=== PATIENT | female | born 1970 | race Caucasian/White ===

== ENCOUNTER 2017-12-05 11:14 | Emergency (ER) | payer OTHER ==
[~2017-12-05] VITALS: Ht 165.1 cm; Wt 61.2 kg
[~2017-12-05 11:14] MED LIST: ESCITALOPRAM OXA5 MG PO; GLIMEPIRIDE4 M1 PO; LATUDA80 M1 PO; LISINOPRIL10 M1 PO; PIOGLITAZONE HC30 M1 PO; RANITIDINE HCL300 M1 PO; VITAMIN D250000 UNIT PO
[2017-12-05 12:13] LABS: ABSOLUTE BASOPHIL COUNT 0.1 /CUMM (0.0-0.2); ABSOLUTE EOSINOPHIL COUNT 0.2 /CUMM (0.0-0.7); ABSOLUTE GRANULOCYTE CT 10.6 /CUMM (1.4-6.5); ABSOLUTE LYMPH COUNT 4.3 /CUMM (1.2-3.4); ABSOLUTE MONOCYTE COUNT 1.1 /CUMM (0.10-0.60); BASOPHIL % 0.7 % (0.0-2.0); EOSINOPHIL % 1.3 % (0-5); GRANULOCYTE % 65.2 % (42.2-75.2); HEMATOCRIT 46.8 % (37-47); MEAN CORPUSCULAR HGB 30.1 PG (27.0-31.0); MEAN CORPUSCULAR VOLUME 88.6 FL (81.0-99.0); MEAN PLATELET VOLUME 7.4 FL (7.4-10.4); PLATELET COUNT 423 /CUMM (130-400); RBC DISTRIBUTION WIDTH 12.8 % (11.5-14.5); RED BLOOD CELL CT 5.28 /CUMM (4.20-5.40); WHITE BLOOD CELL COUNT 16.3 /CUMM (4.8-10.8)
--- NOTE | 2017-12-05 15:16 | RADIOLOGY REPORT ---
EXAMINATION: XR CHEST CLINICAL INFORMATION: Cough, fever and shortness of breath. COMPARISON: 03/01/2017 TECHNIQUE: 2 views of the chest were obtained. FINDINGS: Lungs are well expanded and clear. No pulmonary consolidation or pleural effusion. Cardiac silhouette is normal in size and hilar contours are normal. The visualized bones are intact. Anterior fusion plates and screws are seen within the cervical spine. IMPRESSION: No evidence of pneumonia. No acute cardiopulmonary findings compared to 03/01/2017.
--- NOTE | 2017-12-05 15:17 | RADIOLOGY REPORT ---
EXAMINATION: XR ANKLE, RIGHT CLINICAL INFORMATION: Pain COMPARISON: None TECHNIQUE: AP, lateral, and mortise views of the right ankle. FINDINGS: There is no fracture or dislocation. The ankle mortise is congruent. No ankle joint effusion. Small plantar heel spur present. The soft tissues are unremarkable. IMPRESSION: No acute osseous abnormality. Plantar heel spur.
--- NOTE | 2017-12-05 16:03 | ED GENERAL ADULT ---
History of Present Illness General Chief Complaint: Dyspnea (COPD, CHF, Other) Stated Complaint: DIFF BREATHING Source: patient Exam Limitations: no limitations Vital Signs & Intake/Output Vital Signs & Intake/Output Vital Signs Date Time Temp Pulse Resp B/P B/P Pulse O2 O2 Flow FiO2 Mean Ox Delivery Rate 12/05 1816 98.1 101 22 117/74 93 Room Air 12/05 1653 97.7 87 18 141/87 94 Room Air Room Air 12/05 1225 94 Nasal 2.0L Cannula 12/05 1205 89 Room Air 12/05 1122 98.3 86 18 103/70 96 Room Air Room Air Allergies Coded Allergies: Penicillins (HANDS SWELL 12/15/16) Triage Note: PT TO ED WITH C/O SOB COUGH CONGESTION +SMOKER, HX ASTHMA, BROCITIS ?COPD. PT EVAL IN TRIAGE BY KERA SCHUSTER. Triage Nurses Notes Reviewed? yes Onset: Gradual Duration: day(s): Timing: constant HPI: 47-year-old female with a history of Crohn's, diabetes presenting with cough productive of white sputum, chest tightness, and shortness of breath over the past few days. Endorses coughing fits that result in posttussive emesis. No recent sick contacts. Patient has no formal diagnosis of COPD, but is a one pack per day smoker. Reports that she gets bronchitis multiple times per year, requiring a course of antibiotics in order to improve. Denies fevers, URI symptoms, chest pain, abdominal pain, diarrhea. Patient also complains of urinary frequency, but denies dysuria or hematuria. (Arianna SCHUSTER,Terrie) Reconcile Medications Albuterol Sulfate (Proventil Hfa) 90 MCG HFA.AER.AD 2 PUF INH Q4 PRN SOB Atorvastatin Calcium 10 MG TABLET 1 TAB PO DAILY CHOLESTEROL (Reported) Azithromycin 250 MG TABLET 1 DP PO AD bronchitis 2 the first day followed by 1 for days 2-5 Cephalexin (Keflex) 500 MG CAPSULE 1 CAP PO BID UTI Ergocalciferol (Vitamin D2) (Vitamin D2) 50,000 UNIT CAPSULE 1 CAP PO QW VITAMIN SUPPORT (Reported) Gabapentin 100 MG CAPSULE 2 CAP PO TID UNKNOWN (Reported) Glimepiride 4 MG TABLET 1 TAB PO DAILY DIABETES (Reported) Ipratropium/Albuterol Sulfate (Combivent Respimat Inhal [place]) 20 MCG-100 MCG/ ACTUATION MIST.INHAL 2 Actuation INH Q6P PRN BRONCHITIS/WHEEZING Lisinopril 10 MG TABLET 1 TAB PO DAILY HEART (Reported) Lurasidone HCl (Latuda) 80 MG TABLET 1 TAB PO QPM MENTAL HEALTH (Reported) Pioglitazone HCl 30 MG TABLET 1 TAB PO DAILY DIABETES (Reported) Prednisone 10 MG TABLET 6 TAB PO DAILY COPD Sitagliptin Phosphate (Januvia) 100 MG TABLET 1 TAB PO DAILY DIABETES ( Reported) (Prasad HENRY,Raymond) Past History Travel History Traveled to [place] past 21 day No Medical History Any Pertinent Medical History? 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 No (Terrie Monaco) Review of Systems Review of Systems Constitutional: Reports: no symptoms. EENTM: Reports: no symptoms. Respiratory: Reports: see HPI. Cardiovascular: Reports: no symptoms. GI: Reports: see HPI. Genitourinary: Reports: see HPI. Musculoskeletal: Reports: no symptoms. Skin: Reports: no symptoms. Neurological/Psychological: Reports: no symptoms. Hematologic/Endocrine: Reports: no symptoms. Immunologic/Allergic: Reports: no symptoms. (Terrie Monaco) Physical Exam Physical Exam General Appearance: well developed/nourished, no apparent distress, alert, awake , comfortable Head: atraumatic, normal appearance Eyes: Bilateral: normal appearance. Ears, Nose, Throat: normal ENT inspection Neck: normal inspection Respiratory: wheezing, diffuse end expiratory wheezing throughout all lung vasquez Cardiovascular: regular rate/rhythm Gastrointestinal: soft, non-tender Back: normal inspection, no CVA tenderness Extremities: normal inspection Neurologic/Psych: awake, alert, oriented x 3, normal gait, normal mood/affect Skin: intact, normal color, warm/dry Core Measures ACS in differential dx? No CVA/TIA Diagnosis: No Sepsis Present: No Sepsis Focused Exam Completed? No (Terrie Monaco) Progress Differential Diagnoses I considered the following diagnoses in my evaluation of the patient: [ Bronchitis versus pneumonia versus COPD with exacerbation versus UTI versus pyelonephritis, low concern for PE versus ACS] Plan of Care: Orders Procedure Date/time Status ARTERIAL BLOOD GAS (GEN) 12/05 1822 Active Add-on Test (ER Only) 12/05 1611 Active CULTURE,URINE 12/05 1515 Active AEROSOL (GEN) 12/05 1254 Complete URINALYSIS 12/05 112 Complete TROPONIN LEVEL 12/05 112 Complete COMPREHENSIVE METABOLIC PANEL 12/05 112 Complete CBC WITHOUT DIFFERENTIAL 12/05 112 Complete EKG 12/05 112 Active Current Medications Sig/Rossana Start time Last Medication Dose Stop Time Status Admin Ciprofloxacin 500 MG ONCE ONE 12/05 164 CAN (Cipro) 12/05 164 Laboratory Tests 12/05/17 1835: pH 7.42, pCO2 36, pO2 62 L, HCO3 23, ABG O2 Sat (Measured) 90.0 L, Carboxyhemoglobin 1.6, O2 Concentration % RA, Temperature 98.6, Phlebotomy Draw Site RIGHT RADIAL 12/05/17 1515: Urine Color YEL, Urine Clarity HAZY H, Urine pH 6.0, Ur Specific [place] >= 1.030, Urine Protein 30 H, Urine Ketones 40 H, Urine Nitrite NEG, Urine Bilirubin NEG@ICTO, Urine Urobilinogen 0.2, Ur Leukocyte Esterase SMALL H, Ur Microscopic SEDIMENT EXAMINED, Urine RBC RARE, Urine WBC 15-25 H, Urine Bacteria PACKD H, Urine Hemoglobin TRACE-INTACT, Urine Glucose >=1000 H 12/05/17 1155: Anion Gap 13, Estimated GFR > 60, BUN/Creatinine Ratio 24.0, Glucose 241 H, Calcium 9.9, Total Bilirubin 0.5, AST 15, ALT 23, Alkaline Phosphatase 139 H, Troponin I < 0.01, Total Protein 7.1, Albumin 4.1, Globulin 3.0, Albumin/ Globulin Ratio 1.4, CBC w Diff MAN DIFF ORDERED, RBC 5.28, MCV 88.6, MCH 30.1, MCHC 34.0, RDW 12.8, MPV 7.4, Gran % 65.2, Lymphocytes % 26.1, Monocytes % 6.7, Eosinophils % 1.3, Basophils % 0.7, Absolute Granulocytes 10.6 H, Segmented Neutrophils 69, Absolute Lymphocytes 4.3 H, Lymphocytes 27, Monocytes 3, Absolute Monocytes 1.1 H, Eosinophils 1, Absolute Eosinophils 0.2, Absolute Basophils 0.1, Platelet Estimate VERIFIED BY SMEAR, Normocytic RBCs VERIFIED, Normochromic RBCs VERIFIED Microbiology 12/05 1515 URINE ROUT: Urine Culture - RECD UA is concerning for infection, urine culture sent, and will cover with Keflex. Low concern for pyelonephritis as patient has no CVA tenderness and has been afebrile. Labs are remarkable for leukocytosis to 16. Chest x-ray was unremarkable. Suspect patient has underlying COPD, with likely acute exacerbation secondary to bronchitis. Will cover with Rx azithromycin and prednisone. Given refill on her albuterol inhaler. On discharge patient was noted to be somewhat lethargic, obtain ABG to ensure that the patient didn't have hypercarbic respiratory failure. ABG is within normal limits, no acidosis or hypercarbia. Patient is now well-appearing, satting mid 90s on room air, no tachypnea, no signs of respiratory distress. Ambulatory O2 sat remained in the mid 90s. Patient is cleared for discharge, counseled on supportive care, and given strict return precautions. Initial ED EKG: NSR, no ST T wave changes (Terrie Monaco) Departure Departure Disposition: HOME OR SELF CARE Condition: Stable Clinical Impression Primary Impression: Bronchitis Secondary Impressions: UTI (urinary tract infection) Referrals: Rohan HENRY,Baudilio Aguilar (PCP/Family) Additional Instructions: Take azithromycin, Keflex, and prednisone as prescribed. Use your albuterol inhaler as needed for shortness of breath. Follow-up with your primary care provider for reevaluation. Return to the emergency department for any new or worsening symptoms. Departure Forms: Customer Survey General Discharge Information Prescriptions: Current Visit Scripts Albuterol Sulfate (Proventil Hfa) 2 PUF INH Q4 PRN SOB #1 INHAL Prednisone 6 TAB PO DAILY #18 TAB Azithromycin 1 DP PO AD #6 TAB 2 the first day followed by 1 for days 2-5 Cephalexin (Keflex) 1 CAP PO BID #20 CAP (Terrie Monaco) PA/DRYWALL APPLICATION SUPERVISOR Co-Sign Statement Statement: ED Attending supervision documentation- I saw and evaluated the patient. I have also reviewed all the pertinent lab results and diagnostic results. I agree with the findings and the plan of care as documented in the PA's/DRYWALL APPLICATION SUPERVISOR's documentation. x I have reviewed the ED Record and agree with the PA's/DRYWALL APPLICATION SUPERVISOR's documentation. [] Additions or exceptions (if any) to the PAs/DRYWALL APPLICATION SUPERVISOR's note and plan are summarized below: [] (Prasad HENRY,Raymond) Critical Care Note Critical Care Note Critical Care Time: 30-74 min (Arianna SCHUSTER,Terrie)
[2017-12-05] MEDS ORDERED: KEFLEX500 M1 PO (16:46)
[2017-12-05] MEDS ORDERED: PREDNISONE10 M2 PO (16:46)
[2017-12-05] MEDS ORDERED: AZITHROMYCIN250 M1 PO (16:46)
[2017-12-05] MEDS ORDERED: PROVENTIL HFA6.7 GM INH (16:46)
[2017-12-05 18:16] VITALS: BP 117/74
[2017-12-07] MEDS ORDERED: GABAPENTIN100 M2 PO (08:59)
[2017-12-07] MEDS ORDERED: ATORVASTATIN CA10 M1 PO (09:00)
[2017-12-07] MEDS ORDERED: JANUVIA100 M1 PO (09:00)
[2017-12-07] MEDS ORDERED: COMBIVENT RESPIM4 GM INH (13:14)
== END 2017-12-05 19:34 ==
LOC: ERH 11:14
PROVIDERS: Physician Assistant Medical
DX: J40 Bronchitis, not specified as acute or chronic (principal); N39.0 Urinary tract infection, site not specified; F17.210 Nicotine dependence, cigarettes, uncomplicated; R07.89 Other chest pain; R06.02 Shortness of breath; E11.9 Type 2 diabetes mellitus without complications; Z79.84 Long term (current) use of oral hypoglycemic drugs
CPT/HCPCS: 1263; 71046; 73610-RT; 81001; 87086; 93005; 93010; 96374; 96375; J0456; J1885; J2405; J2930

== ENCOUNTER 2018-01-15 13:10 | Emergency (ER) | payer OTHER ==
[~2018-01-15] VITALS: Ht 162.6 cm; Wt 62.1 kg
[~2018-01-15 13:10] MED LIST changes: +ATORVASTATIN CA10 M1 PO; +AZITHROMYCIN250 M1 PO; +COMBIVENT RESPIM4 GM INH; +GABAPENTIN100 M2 PO; +JANUVIA100 M1 PO; +KEFLEX500 M1 PO; +PREDNISONE10 M2 PO; +PROVENTIL HFA6.7 GM INH
--- NOTE | 2018-01-15 14:27 | ED HEAD/FACIAL INJ COMPLAINT ---
History of Present Illness General Chief Complaint: Facial or Head Injury Stated Complaint: HIT HEAD FEW HRS AGO, -LOC, WOOZY,NAUSEA Source: patient Exam Limitations: no limitations Vital Signs & Intake/Output Vital Signs & Intake/Output Vital Signs Date Time Temp Pulse Resp B/P B/P Pulse O2 O2 Flow FiO2 Mean Ox Delivery Rate 01/15 1757 Room Air 01/15 1656 98.0 01/15 1421 98.0 91 18 98 Room Air Allergies Coded Allergies: Penicillins (HANDS SWELL 12/15/16) Reconcile Medications Albuterol Sulfate (Proventil Hfa) 90 MCG HFA.AER.AD 2 PUF INH Q4 PRN SOB Atorvastatin Calcium 10 MG TABLET 1 TAB PO DAILY CHOLESTEROL (Reported) Azithromycin 250 MG TABLET 1 DP PO AD bronchitis 2 the first day followed by 1 for days 2-5 Cephalexin (Keflex) 500 MG CAPSULE 1 CAP PO BID UTI Ergocalciferol (Vitamin D2) (Vitamin D2) 50,000 UNIT CAPSULE 1 CAP PO QW VITAMIN SUPPORT (Reported) Gabapentin 100 MG CAPSULE 2 CAP PO TID UNKNOWN (Reported) Glimepiride 4 MG TABLET 1 TAB PO DAILY DIABETES (Reported) Ipratropium/Albuterol Sulfate (Combivent Respimat Inhal [place]) 20 MCG-100 MCG/ ACTUATION MIST.INHAL 2 Actuation INH Q6P PRN BRONCHITIS/WHEEZING Lisinopril 10 MG TABLET 1 TAB PO DAILY HEART (Reported) Lurasidone HCl (Latuda) 80 MG TABLET 1 TAB PO QPM MENTAL HEALTH (Reported) Pioglitazone HCl 30 MG TABLET 1 TAB PO DAILY DIABETES (Reported) Prednisone 10 MG TABLET 6 TAB PO DAILY COPD Sitagliptin Phosphate (Januvia) 100 MG TABLET 1 TAB PO DAILY DIABETES ( Reported) Triage Note: 47F SLIPPED AND FELL ON ICE IN THE FREEZER AT WORK AND HIT BACK OF HEAD ON WALL AND FLOOR. DENIES LOC BUT "I SAW STARS." DENIES THINNERS. FALL OCCURRED 4 HOURS AGO. C/O HEADACHE AND NECK STIFFNESS BUT DENIES C-SPINE TENDERNESS ON PALPATION. DENIES N/V BUT ENDORSES BLURRED VISION AT TIMES AND UNABLE TO FOCUS EYES. +DIZZY. Triage Nurses Notes Reviewed? yes Onset: Abrupt Severity: moderate Location: occipital Method of Injury: fall Loss of Consciousness: no loss of consciousness HPI: 47-year-old female presents emergency department complaining of fall with head strike at work prior to arrival. Patient states that she slipped on ice in the freezer room and she hit the back of her head on the wall and then on the floor. There was no loss of consciousness or blackout however patient admits to "seeing stars" immediately after the injury. Patient has been able to walk without difficulty since the fall. She reports feeling off, feeling "woozy" and dizzy. Patient reports difficulty with focusing and blurry vision to her eyes. She reports mild generalized headache at this time. She denies neck pain, chest pain, back pain. Past History Travel History Traveled to [place] past 21 day No Medical History Any Pertinent Medical History? 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 No Review of Systems Review of Systems Constitutional: Reports: no symptoms. EENTM: Reports: see HPI. Respiratory: Reports: no symptoms. Cardiovascular: Reports: no symptoms. GI: Reports: no symptoms. Genitourinary: Reports: no symptoms. Musculoskeletal: Reports: see HPI. Skin: Reports: no symptoms. Neurological/Psychological: Reports: see HPI. Hematologic/Endocrine: Reports: no symptoms. Immunologic/Allergic: Reports: no symptoms. All Other Systems: Reviewed and Negative Physical Exam Physical Exam General Appearance: well developed/nourished, no apparent distress, alert, awake Head: atraumatic, normal appearance Eyes: Bilateral: normal appearance, PERRL, EOMI. Ears, Nose, Throat: normal pharynx, normal ENT inspection, hearing grossly normal Neck: normal inspection, supple, full range of motion, no midline tenderness Respiratory: normal breath sounds, no respiratory distress, lungs clear Cardiovascular: regular rate/rhythm Back: normal inspection, normal range of motion, no vertebral tenderness Extremities: normal inspection, normal range of motion Psychiatric: awake, alert, oriented x 3 Cranial Nerves: normal hearing, normal speech, PERRL, CN II-XII intact Coordination/Gait: normal finger to nose, normal gait Motor/Sensory: no motor/sensory deficits Skin: intact, normal color, warm/dry Progress Differential Diagnosis: c-spine injury, ICH, skull fracture, concussion Plan of Care: Orders Procedure Date/time Status CT HEAD WO IV CONTRAST 01/[address] CERV SPINE WO IV CONTRAST 01/15 1425 Active Patient is neurologically intact on physical exam, no focal neurologic deficit. She answers questions readily and ambulate with a steady gait. CT imaging is negative for acute fracture versus intracranial abnormality. Her symptoms are consistent with concussion relating to her head injury. Patient was educated on symptoms of concussion. She was instructed to follow-up with her primary care physician. She agrees with the plan of care, she is in no acute distress. She was given strict return precautions which she understands. Diagnostic Imaging: Viewed by Me: CT Scan. Discussed w/RAD: CT Scan. Radiology Impression: PATIENT: MONICA LI PRESENT AGE: 47 PATIENT ACCOUNT NO: [id number] : 71 LOCATION: [facility] ORDERING PHYSICIAN: Fiordaliza SCHUSTER SERVICE DATE: 01/15/18 EXAM TYPE: CAT - CT CERV SPINE WO IV CONTRAST; CT HEAD WO IV CONTRAST EXAMINATION: CT HEAD WITHOUT CONTRAST CT CERVICAL SPINE WITHOUT CONTRAST CLINICAL INFORMATION: Status post head strike. Assess for fracture or bleed. COMPARISON: Plain films of the cervical spine 10/14/2005. TECHNIQUE: Multidetector CT imaging of the head and cervical spine was performed without the use of intravenous contrast. Coronal and sagittal reformatted images were generated at the technologist workstation. DLP: 937.6 mGy-cm. FINDINGS: CT head: There is no evidence of acute intracranial hemorrhage or territorial infarction. No abnormal mass-effect or midline shift is seen. Wong to white matter differentiation is well preserved. No extra-axial fluid collections are identified. The ventricles are normal in size. There is no abnormal attenuation within the brain parenchyma. There are mild atheromatous calcifications of the cavernous internal carotid arteries. There are no acute osseous or soft tissue abnormalities. The mastoid air cells and visualized portions of the paranasal sinuses all well-aerated. CT cervical spine: There is anatomic alignment of the vertebral bodies. There are sequelae of multilevel ACDF. There has been revision of the previously noted ACDF at C4-C5. ACDF changes are seen at C3-C4 and C6-C7. There are anterior plate and vertebral body screws which appear intact. There are intervertebral disc devices at C3-C4 and C6-C7 which appear well integrated into the adjacent vertebrae. Fusion changes of C4-C5 and C5-C6 are noted. There is marked narrowing of intervertebral disc height anteriorly at C3-C4 with prominent marginal osteophytes. There are no acute fractures. There are mild multilevel facet arthropathic changes. The lateral masses of C1 and C2 are normally aligned and the dens is intact. There is narrowing of the bilateral atlantooccipital joint spaces consistent with degenerative changes. There is narrowing of the atlantoaxial joint space with osteophytes consistent with degenerative changes. The paravertebral soft tissues are unremarkable. There are bullae in the right greater than left lung apices. IMPRESSION: 1. There are no acute intracranial bleeds or territorial infarcts. There are no acute osseous or soft tissue abnormalities. 2. There are sequelae of multilevel ACDF procedures between C3 and C7. There are no acute fractures or subluxations. 3. There are spondylitic changes at the atlantooccipital regions and at C2-C3. DICTATED BY: Neil Gaytan MD DATE/TIME DICTATED:01/15/181535 ADVERTISING MANAGER:CAMI DATE/TIME TRANSCRIBED:01/15/181535 CONFIDENTIAL, DO NOT COPY WITHOUT APPROPRIATE AUTHORIZATION. <Electronically signed in Other Vendor System> SIGNED BY: Neil Gaytan MD 01/15/18 1556 Departure Departure Disposition: HOME OR SELF CARE Condition: Stable Clinical Impression Primary Impression: Fall Qualifiers: Encounter type: initial encounter Qualified Code: W19.XXXA - Unspecified fall, initial encounter Secondary Impressions: Head injury Qualifiers: Encounter type: initial encounter Qualified Code: S09.90XA - Unspecified injury of head, initial encounter Referrals: Baudilio Madrigal MD (PCP/Family) Additional Instructions: You may have a concussion relating to your head injury. Try to rest and avoid strenuous activity including heavy cell phone/laptop use, television use, reading. You were given a work note so that you can rest for the next 1-2 days if you have persistent symptoms. Follow-up with your primary care doctor. Return if you have sudden worsening headache, vision loss, numbness, weakness, vomiting. Please note that there might be incidental findings in your evaluation that are unrelated to the current emergency department visit. Please notify your primary care doctor about this emergency department visit in order to obtain and review all of the testing performed so that these incidental findings can be monitored as needed. If you had an x-ray performed, please understand that some fractures may not be seen on the initial set of x-rays. If your symptoms persist you might need a repeat set of x-rays to check for such a fracture. If you had a laceration evaluated, please understand that foreign bodies such as glass or wood may not be visible to the naked eye or on plain x-rays. If the wound becomes red, swollen, increasingly more painful or if there is any drainage from the wound, please have it reevaluated by a physician for the possibility of a retained foreign body. If you're unable to follow up as outlined in the discharge instructions please return to the emergency department. Thank you for choosing the [facility] Emergency Department for your care. It was a pleasure to serve you today. Departure Forms: Customer Survey General Discharge Information
--- NOTE | 2018-01-15 15:56 | CT SCAN REPORT ---
EXAMINATION: CT HEAD WITHOUT CONTRAST CT CERVICAL SPINE WITHOUT CONTRAST CLINICAL INFORMATION: Status post head strike. Assess for fracture or bleed. COMPARISON: Plain films of the cervical spine 10/14/2005. TECHNIQUE: Multidetector CT imaging of the head and cervical spine was performed without the use of intravenous contrast. Coronal and sagittal reformatted images were generated at the technologist workstation. DLP: 937.6 mGy-cm. FINDINGS: CT head: There is no evidence of acute intracranial hemorrhage or territorial infarction. No abnormal mass-effect or midline shift is seen. Wong to white matter differentiation is well preserved. No extra-axial fluid collections are identified. The ventricles are normal in size. There is no abnormal attenuation within the brain parenchyma. There are mild atheromatous calcifications of the cavernous internal carotid arteries. There are no acute osseous or soft tissue abnormalities. The mastoid air cells and visualized portions of the paranasal sinuses all well-aerated. CT cervical spine: There is anatomic alignment of the vertebral bodies. There are sequelae of multilevel ACDF. There has been revision of the previously noted ACDF at C4-C5. ACDF changes are seen at C3-C4 and C6-C7. There are anterior plate and vertebral body screws which appear intact. There are intervertebral disc devices at C3-C4 and C6-C7 which appear well integrated into the adjacent vertebrae. Fusion changes of C4-C5 and C5-C6 are noted. There is marked narrowing of intervertebral disc height anteriorly at C3-C4 with prominent marginal osteophytes. There are no acute fractures. There are mild multilevel facet arthropathic changes. The lateral masses of C1 and C2 are normally aligned and the dens is intact. There is narrowing of the bilateral atlantooccipital joint spaces consistent with degenerative changes. There is narrowing of the atlantoaxial joint space with osteophytes consistent with degenerative changes. The paravertebral soft tissues are unremarkable. There are bullae in the right greater than left lung apices. IMPRESSION: 1. There are no acute intracranial bleeds or territorial infarcts. There are no acute osseous or soft tissue abnormalities. 2. There are sequelae of multilevel ACDF procedures between C3 and C7. There are no acute fractures or subluxations. 3. There are spondylitic changes at the atlantooccipital regions and at C2-C3.
[2018-01-15 18:20] VITALS: BP 143/80
== END 2018-01-15 18:23 ==
LOC: ERH 13:10
DX: S09.90XA Unspecified injury of head, initial encounter (principal); R51 Headache; M43.6 Torticollis; H53.8 Other visual disturbances; W00.0XXA Fall on same level due to ice and snow, initial encounter; Y93.01 Activity, walking, marching and hiking; Y92.89 Other specified places as the place of occurrence of the external cause

== ENCOUNTER 2018-02-02 08:55 | Emergency (ER) | payer OTHER ==
[~2018-02-02] VITALS: Ht 165.1 cm; Wt 61.2 kg
[2018-02-02 10:02] LABS: ABSOLUTE BASOPHIL COUNT 0.1 /CUMM (0.0-0.2); ABSOLUTE EOSINOPHIL COUNT 0.2 /CUMM (0.0-0.7); ABSOLUTE GRANULOCYTE CT 10.7 /CUMM (1.4-6.5); ABSOLUTE LYMPH COUNT 3.2 /CUMM (1.2-3.4); ABSOLUTE MONOCYTE COUNT 0.9 /CUMM (0.10-0.60); BASOPHIL % 0.4 % (0.0-2.0); EOSINOPHIL % 1.1 % (0-5); GRANULOCYTE % 70.9 % (42.2-75.2); HEMATOCRIT 44.7 % (37-47); MEAN CORPUSCULAR HGB CONC 33.3 G/DL (33.0-37.0); MEAN CORPUSCULAR VOLUME 89.9 FL (81.0-99.0); MEAN PLATELET VOLUME 7.2 FL (7.4-10.4); PLATELET COUNT 377 /CUMM (130-400); RBC DISTRIBUTION WIDTH 13.3 % (11.5-14.5); RED BLOOD CELL CT 4.97 /CUMM (4.20-5.40); WHITE BLOOD CELL COUNT 15.1 /CUMM (4.8-10.8)
[2018-02-02 10:23] LABS: PT 10.8 SEC (9.4-12.5); PTT 29 SEC (25-37)
--- NOTE | 2018-02-02 11:57 | CT SCAN REPORT ---
EXAMINATION: CT ABDOMEN AND PELVIS WITH CONTRAST CLINICAL INFORMATION: Rectal and abdominal pain. Presumptive diagnosis: Crohn's flare. COMPARISON: None TECHNIQUE: Multidetector volumetric imaging was performed of the abdomen and pelvis following IV administration of 95 mL of Optiray 320 intravenous contrast. Sagittal and coronal reformatted images were obtained on the technologist's workstation. DLP: 290.84 mGy-cm FINDINGS: LUNG BASES: The visualized lung bases are unremarkable. LIVER, GALLBLADDER, AND BILIARY TREE: The liver is normal in size, shape, and attenuation. No focal hepatic lesion or biliary ductal dilatation is present. The gallbladder surgically absent. PANCREAS: Unremarkable. SPLEEN: Unremarkable. ADRENAL GLANDS: Unremarkable. KIDNEYS AND URETERS: The kidneys are normal in size, shape, and attenuation. No hydronephrosis, hydroureter, or calculi seen. No perinephric stranding. BLADDER: Unremarkable. GASTROINTESTINAL TRACT: There is ill-defined mild rectal wall thickening and submucosal edema. There is submucosal low density in the proximal to mid transverse colon, hepatic flexure, ascending colon, and distal ileum. Some of this appears to represent fat and could be related to chronic inflammation although some of this could represent edema as well suggesting acute inflammation. There is some nonspecific fecalization of distal ileal contents. The rest of the small bowel is unremarkable. The appendix is normal. ABDOMINAL WALL: No significant hernia is appreciated. LYMPH NODES: Normal. VASCULAR: Unremarkable. PELVIC VISCERA: Unremarkable. OSSEOUS STRUCTURES: There is L3-S1 posterior fusion. There is minor osteoarthritis of both hips. The sacroiliac joints are fused. IMPRESSION: 1. Ill-defined mild rectal wall thickening and submucosal edema suspicious for proctitis. 2. Submucosal low density in the transverse colon, ascending colon, and distal ileum, some of which appears to be fat density consistent with chronic inflammation, although some of which appears to represent edema raising the possibility of more acute inflammation.
--- NOTE | 2018-02-02 12:04 | ED GI/GU/ABDOMINAL COMPLAINT ---
History of Present Illness General Chief Complaint: Abdominal Pain/Flank Pain Stated Complaint: RECTAL BLEED Source: patient Exam Limitations: no limitations Vital Signs & Intake/Output Vital Signs & Intake/Output ED Intake and Output 02/03 0000 02/02 1200 Intake Total 0 Output Total Balance 0 Intake, Oral 0 Patient 135 lb Weight Weight Reported by Patient Measurement Method Allergies Coded Allergies: Penicillins (HANDS SWELL 12/15/16) Reconcile Medications Albuterol Sulfate (Proventil Hfa) 90 MCG HFA.AER.AD 2 PUF INH Q4 PRN SOB Atorvastatin Calcium 10 MG TABLET 1 TAB PO DAILY CHOLESTEROL (Reported) Azithromycin 250 MG TABLET 1 DP PO AD bronchitis 2 the first day followed by 1 for days 2-5 Cephalexin (Keflex) 500 MG CAPSULE 1 CAP PO BID UTI Ergocalciferol (Vitamin D2) (Vitamin D2) 50,000 UNIT CAPSULE 1 CAP PO QW VITAMIN SUPPORT (Reported) Gabapentin 100 MG CAPSULE 2 CAP PO TID UNKNOWN (Reported) Glimepiride 4 MG TABLET 1 TAB PO DAILY DIABETES (Reported) Ipratropium/Albuterol Sulfate (Combivent Respimat Inhal Foley) 20 MCG-100 MCG/ ACTUATION MIST.INHAL 2 Actuation INH Q6P PRN BRONCHITIS/WHEEZING Lisinopril 10 MG TABLET 1 TAB PO DAILY HEART (Reported) Lurasidone HCl (Latuda) 80 MG TABLET 1 TAB PO QPM MENTAL HEALTH (Reported) Pioglitazone HCl 30 MG TABLET 1 TAB PO DAILY DIABETES (Reported) Prednisone 10 MG TABLET 6 TAB PO DAILY COPD Sitagliptin Phosphate (Januvia) 100 MG TABLET 1 TAB PO DAILY DIABETES ( Reported) Triage Note: PT TO ED C/O RECTAL BLEEDING AND CONSTIPATION. STATES "IT FEELS LIKE SOMETHING HAS TO COME OUT, SO I TRY TO GO AND THEN WHEN I WIPE IT'S ALL BLOOD". DENIES ABD PAIN. C/O PRESSURE TO RECTUM. H/O CROHNS. Triage Nurses Notes Reviewed? yes LMP (ages 10-50): unknown ? N Is pt currently ? No Onset: Abrupt Duration: day(s): (1), constant, continues in ED Timing: single episode today Quality/Severity: dullness, fullness Severity Numbers: 10 Location: generalized abdomen, RECTUM Radiation: no radiation Activities at Onset: none Prior Abdominal Problems: similar symptoms Past Sexual History: Unobtainable at this time No Modifying Factors: none HPI: 47 year old female history of Crohn's, bipolar disorder and diabetes presents for evaluation of constipation and abdominal pain. Patient reports she is unsure when her last bowel movement was. She reports that he'll hard stool in her rectum and she is unable to push it out. She's been trying all day. She also reports diffuse abdominal pain. She states she has seen some blood while trying to have bowel movements. She's never seen this before. 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 No dizziness lightheadedness blood thinners chest pain shortness of breath syncope. (Surinder Leal) Past History Travel History Traveled to [place] past 21 day No Medical History Any Pertinent Medical History? 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 No (Surinder Leal) Review of Systems Review of Systems Constitutional: Reports: no symptoms. EENTM: Reports: no symptoms. Respiratory: Reports: no symptoms. Cardiovascular: Reports: no symptoms. GI: Reports: see HPI, abdominal pain, bloating, constipation. Genitourinary: Reports: no symptoms. Musculoskeletal: Reports: no symptoms. Skin: Reports: no symptoms. Neurological/Psychological: Reports: no symptoms. Hematologic/Endocrine: Reports: no symptoms. Immunologic/Allergic: Reports: no symptoms. All Other Systems: Reviewed and Negative (Surinder Leal) Physical Exam Physical Exam General Appearance: well developed/nourished, no apparent distress, alert, awake Head: atraumatic, normal appearance Eyes: Bilateral: normal appearance, PERRL, EOMI. Ears, Nose, Throat, Mouth: moist mucous membrane Neck: normal inspection, supple, full range of motion Respiratory: normal breath sounds, chest non-tender, no respiratory distress, lungs clear Cardiovascular: regular rate/rhythm, normal peripheral pulses Peripheral Pulses: 2+ radial (R), 2+ radial (L) Gastrointestinal: normal bowel sounds, soft, no organomegaly, tenderness ( DIFFUSE ) Rectal: normal inspection, normal rectal tone, heme negative stool, fecal impaction Back: normal inspection, normal range of motion, no vertebral tenderness Extremities: normal range of motion Neurologic/Psych: no motor/sensory deficits, awake, alert, oriented x 3, normal gait, normal mood/affect Skin: intact, normal color, warm/dry Core Measures ACS in differential dx? No Sepsis Present: No Sepsis Focused Exam Completed? No (Salvador SCHUSTER,Surinder) Progress Differential Diagnosis: ischemic bowel, inflamm bowel dis, FECAL IMPACTION, CONSTIPATION, STERCORAL COLITIS, INFLAMMATORY BOWEL DISEASE, MALIGNANCY Plan of Care: Orders Procedure Date/time Status Add-on Test (ER Only) 02/02 1130 Active ETHANOL 02/03 948 Complete MISTAKE 02/02 858 Active PARTIAL THROMBOPLASTIN TIME 02/02 858 Complete PROTHROMBIN TIME 02/02 858 Complete LIPASE 02/02 858 Complete HUMAN BETA HCG SCREEN 02/02 858 Complete COMPREHENSIVE METABOLIC PANEL 02/02 858 Complete CBC WITHOUT DIFFERENTIAL 02/02 858 Complete Laboratory Tests 02/02/18947: Anion Gap 10, Estimated GFR > 60, BUN/Creatinine Ratio 27.5 H, Glucose 280 H, Calcium 9.3, Total Bilirubin 0.4, AST 13 L, ALT 25, Alkaline Phosphatase 138 H , Total Protein 6.6, Albumin 3.7, Globulin 2.9, Albumin/Globulin Ratio 1.3, Lipase 376 H, Total Beta HCG NEGATIVE, PT 10.8, INR 0.99, APTT 29, CBC w Diff NO MAN DIFF REQ, RBC 4.97, MCV 89.9, MCH 30.0, MCHC 33.3, RDW 13.3, MPV 7.2 L, Gran % 70.9, Lymphocytes % 21.3, Monocytes % 6.3, Eosinophils % 1.1, Basophils % 0.4, Absolute Granulocytes 10.7 H, Absolute Lymphocytes 3.2, Absolute Monocytes 0.9 H, Absolute Eosinophils 0.2, Absolute Basophils 0.1, Serum Alcohol < 10.0 02/02/18857: Urine Color Cancelled, Urine Clarity Cancelled, Urine pH Cancelled, Ur Specific Mellette Cancelled, Urine Protein Cancelled, Urine Ketones Cancelled, Urine Nitrite Cancelled, Urine Bilirubin Cancelled, Urine Urobilinogen Cancelled, Ur Leukocyte Esterase Cancelled, Ur Microscopic Cancelled, Urine Hemoglobin Cancelled, Urine Glucose Cancelled Patient is here for evaluation of constipation and rectal pain. She is unsure when her last bowel movement was. She reports some diffuse pain when trying to bowel movement and also reported some blood. On exam she has hard stool in her rectum that she is unable to pass. Attempted to give patient a Fleet enema this did not work. Stool was manually removed from the rectum the patient was able have a bowel movement. She feels better. CT scan showed some proctitis and colitis. Patient does have a mildly elevated white blood cell count but her previous white blood cell count seem to be chronically elevated. Spoke with Dr. Beckham who feels the patient does not need any specific treatment other than she may for constipation. Patient was instructed to rest and plenty of fluids increase fiber. Stool softeners. She will see Dr. Beckham February 09 at 2: 15. Discussed return precautions in detail. Patient agrees the plan Diagnostic Imaging: Viewed by Me: CT Scan. Discussed w/RAD: CT Scan. Radiology Impression: PATIENT: MONICA LI PRESENT AGE: 47 PATIENT ACCOUNT NO: [id number] : 71 LOCATION: [facility] ORDERING PHYSICIAN: Surinder SCHUSTER SERVICE DATE: 02/02/18 EXAM TYPE: CAT - CT ABD & PELVIS W IV CONTRAST EXAMINATION: CT ABDOMEN AND PELVIS WITH CONTRAST CLINICAL INFORMATION: Rectal and abdominal pain. Presumptive diagnosis: Crohn's flare. COMPARISON: None TECHNIQUE: Multidetector volumetric imaging was performed of the abdomen and pelvis following IV administration of 95 mL of Optiray 320 intravenous contrast. Sagittal and coronal reformatted images were obtained on the technologist's workstation. DLP: 290.84 mGy-cm FINDINGS: LUNG BASES: The visualized lung bases are unremarkable. LIVER, GALLBLADDER, AND BILIARY TREE: The liver is normal in size, shape, and attenuation. No focal hepatic lesion or biliary ductal dilatation is present. The gallbladder surgically absent. PANCREAS: Unremarkable. SPLEEN: Unremarkable. ADRENAL GLANDS: Unremarkable. KIDNEYS AND URETERS: The kidneys are normal in size, shape, and attenuation. No hydronephrosis, hydroureter, or calculi seen. No perinephric stranding. BLADDER: Unremarkable. GASTROINTESTINAL TRACT: There is ill-defined mild rectal wall thickening and submucosal edema. There is submucosal low density in the proximal to mid transverse colon, hepatic flexure, ascending colon, and distal ileum. Some of this appears to represent fat and could be related to chronic inflammation although some of this could represent edema as well suggesting acute inflammation. There is some nonspecific fecalization of distal ileal contents. The rest of the small bowel is unremarkable. The appendix is normal. ABDOMINAL WALL: No significant hernia is appreciated. LYMPH NODES: Normal. VASCULAR: Unremarkable. PELVIC VISCERA: Unremarkable. OSSEOUS STRUCTURES: There is L3-S1 posterior fusion. There is minor osteoarthritis of both hips. The sacroiliac joints are fused. IMPRESSION: 1. Ill-defined mild rectal wall thickening and submucosal edema suspicious for proctitis. 2. Submucosal low density in the transverse colon, ascending colon, and distal ileum, some of which appears to be fat density consistent with chronic inflammation, although some of which appears to represent edema raising the possibility of more acute inflammation. DICTATED BY: Nnamdi Fox MD DATE/TIME DICTATED:02/02/181127 WHOLESALE REPRESENTATIVE:CAMI DATE/TIME TRANSCRIBED:02/02/181127 CONFIDENTIAL, DO NOT COPY WITHOUT APPROPRIATE AUTHORIZATION. Initial ED EKG: none (Surinder Leal) Departure Departure Disposition: HOME OR SELF CARE Condition: Stable Clinical Impression Primary Impression: Constipation Qualifiers: Constipation type: unspecified constipation type Qualified Code: K59.00 - Constipation, unspecified Secondary Impressions: Colitis Referrals: Rosa HENRY,Aniket Madrigal MD,Baudilio Aguilar (PCP/Family) Additional Instructions: Make a follow-up with Dr. Beckham audiovisual equipment operator February 09 at 2:15 PM. Use MiraLAX increase fluids to prevent constipation in the future. Monitor your symptoms return with any concerns. Departure Forms: Customer Survey General Discharge Information (Surinder Leal) PA/MANAGER SPORTS Co-Sign Statement Statement: ED Attending supervision documentation- [] I saw and evaluated the patient. I have also reviewed all the pertinent lab results and diagnostic results. I agree with the findings and the plan of care as documented in the PA's/MANAGER SPORTS's documentation. [x] I have reviewed the ED Record and agree with the PA's/MANAGER SPORTS's documentation. [] Additions or exceptions (if any) to the PAs/MANAGER SPORTS's note and plan are summarized below: [] (Fernando HENRY,[facility])
[2018-02-02 12:41] VITALS: BP 127/63
== END 2018-02-02 12:50 ==
LOC: ERH 08:55
PROVIDERS: Physician Assistant Medical
DX: K59.00 Constipation, unspecified (principal); K52.9 Noninfective gastroenteritis and colitis, unspecified; R10.84 Generalized abdominal pain; K50.90 Crohn's disease, unspecified, without complications; E11.9 Type 2 diabetes mellitus without complications; F17.210 Nicotine dependence, cigarettes, uncomplicated; Z79.84 Long term (current) use of oral hypoglycemic drugs
CPT/HCPCS: 74177; 96374; 96375; G0480; J0131; J2405